=== PATIENT | female | born 1955 | race Two or more races ===

== ENCOUNTER 2022-12-22 14:29 | Emergency (ER) | payer OTHER ==
[~2022-12-22] VITALS: Ht 167.6 cm; Wt 81.8 kg
[2022-12-22 14:40] VITALS: PULSE 77; RESP 19; O2SAT 98
[2022-12-22 16:15] VITALS: BP 130/71; PULSE 74; RESP 19; TEMP 98.2; O2SAT 96
== END 2022-12-22 16:20 | disposition home or self-care (01) ==
LOC: EDBD 14:29 → ER 14:29
DX: T54.91XA Toxic effect of unspecified corrosive substance, accidental (unintentional), initial encounter (principal); R07.0 Pain in throat; I10 Essential (primary) hypertension; Y92.89 Other specified places as the place of occurrence of the external cause